=== PATIENT | female | born 1985 | race American Indian/Alaskan Native ===

== ENCOUNTER 2017-12-14 10:26 | Emergency (ER) | payer MEDICAID ==
[2017-12-14 10:52] VITALS: TEMP 97.5
[2017-12-14] MEDS ORDERED: Tetracaine 0.5% Ophth (OR ONLY) ONE (11:59)
--- NOTE | 2017-12-14 12:29 | C.PDOC ---
History Of Present Illness 31-year-old female, denies significant PMHx presents to the emergency department with complaints of blurred vision in left eye x1 month. Patient notes initially eye was irritated and has been gradually worsening. Has not seen ophtho for these symptoms. Denies trauma, any itching or discharge. No contact lens/glasses. Time Seen by Provider: 12/14/17 11:10 Chief Complaint (Nursing): Eye Problem History Per: Patient History/Exam Limitations: no limitations Onset/Duration Of Symptoms: Days Current Symptoms Are (Timing): Still Present Severity: Moderate Past Medical History Reviewed: Historical Data, Nursing Documentation, Vital Signs Vital Signs: Last Vital Signs Temp 97.5 F L 12/14/17 10:50 Pulse 69 12/14/17 14:36 Resp 16 12/14/17 14:36 BP 118/75 12/14/17 14:36 Pulse Ox 98 12/14/17 14:36 Family History: States: No Known Family Hx - Social History Hx Alcohol Use: No Hx Substance Use: No - Immunization History Hx Tetanus Toxoid Vaccination: No Hx Influenza Vaccination: No Hx Pneumococcal Vaccination: No Review Of Systems Constitutional: Negative for: Fever Eyes: Positive for: Vision Change, Redness. Negative for: Pain Respiratory: Negative for: Cough Skin: Negative for: Rash Physical Exam - Physical Exam Appears: Non-toxic, No Acute Distress Skin: Normal Color, Warm, Dry, No Rash Head: Atraumatic, Normacephalic Eye(s): right: Normal Inspection, left: Other (Haziness to the inferior cornea. Pupil with decreased reaction to light. (+) mild injection) Nose: Normal Oral Mucosa: Moist Lips: Normal Appearing Neck: Decreased ROM Chest: Symmetrical Respiratory: No Accessory Muscle Use Neurological/Psych: Oriented x3 ED Course And Treatment O2 Sat by Pulse Oximetry: 97 (RA) Pulse Ox Interpretation: Normal Progress Note: 11:30. Dr Dennis was called, pending call-back. 200 pm. Pt was seen and evaluated by Dr Dennis. Pt was given hand written RX by Dr Dennis and given strict follow up instructions. Pt verbalized understanding. Disposition - Disposition Referrals: Rajesh Dennis MD [Staff Provider] - Disposition: HOME/ ROUTINE Disposition Time: 14:10 Condition: GOOD Additional Instructions: Follow up with eye doctor as instructed this week. Fill prescription given by Dr Dennis. Instructions: Uveitis Forms: [facility] (Kinyarwanda) - Clinical Impression Clinical Impression: Uveitis - Scribe Statement The provider has reviewed the documentation as recorded by the Scribe (Darya Scott) All medical record entries made by the Scribe were at my direction and personally dictated by me. I have reviewed the chart and agree that the record accurately reflects my personal performance of the history, physical exam, medical decision making, and the department course for this patient. I have also personally directed, reviewed, and agree with the discharge instructions and disposition.
[2017-12-14 14:37] VITALS: BP 118/75; PULSE 69; RESP 16
[2017-12-14 15:07] VITALS: O2SAT 97
== END 2017-12-14 14:36 | disposition home or self-care (01) ==
LOC: C.ER 10:26
DX: H20.9 Unspecified iridocyclitis (principal)

== ENCOUNTER 2018-07-07 11:12 | Emergency (ER) | payer MEDICAID ==
[2018-07-07 11:19] VITALS: BMI 22.3
[2018-07-07 11:23] VITALS: BP 116/73; PULSE 65; RESP 20; TEMP 98; O2SAT 96
[2018-07-07] MEDS ORDERED: Tdap Vaccine 0.5 ml Vial (10-64 yrs) IM ONE ×2 (11:30→11:42)
[2018-07-07] MEDS ORDERED: Amoxicillin-Clav 875-125 mg Tab PO STA (11:30)
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
[2018-07-07] MEDS ORDERED: Amoxicillin-Clav 875-125 mg Tab PO ONE (11:42)
== END 2018-07-07 11:50 | disposition home or self-care (01) ==
LOC: C.ER 11:12
DX: S51.852A Open bite of left forearm, initial encounter (principal); W50.3XXA Accidental bite by another person, initial encounter; Z23 Encounter for immunization